=== PATIENT | female | born 1970 | race Two or more races ===

== ENCOUNTER 2017-08-12 10:43 | Emergency (ER) | payer SELFPAY ==
[2017-08-12] MEDS ORDERED: PREDNISOLONE SOD PHOS 15 MG/5 ML ORAL SYRING PO ONE (11:09)
[2017-08-12] MEDS ORDERED: IPRATROPIUM/ALBUTEROL 0.5-2.5 MG/3 ML AMPUL NEB ONE (11:09)
--- NOTE | 2017-08-12 11:11 | ER Document Report ---
ED Medical Screen (RME) - General Chief Complaint: Shortness Of Breath Stated Complaint: SHORTNESS OF BREATH Time Seen by Provider: 08/12/17 11:06 Information source: Patient TRAVEL OUTSIDE OF THE [place] IN LAST 30 DAYS: No - HPI Patient complains to provider of: Shortness of breath and wheezing Onset: Other - 2 weeks Notes: 08/12/17 11:11 Patient states she has a history of asthma many years ago she was hospitalized for it but never placed in the ICU. She states that for the last 2 weeks she has been wheezing with shortness of breath. She has been out of her medication for about a month. She has been using her grandsons nebulizer for the last 3 days without improvement. She states she did fill her albuterol prescription on Wednesday and has been taking that but it is almost gone. Patient denies fevers.She did not get the flu vaccination.On exam she has mild respiratory distress with bilateral inspiratory and expiratory wheezing. DuoNeb/pred ordered. 08/12/17 11:20 - Related Data Allergies/Adverse Reactions: codeine Allergy (Verified 08/12/17 10:53) Penicillins Allergy (Verified 08/12/17 10:53) Past Medical History - Social History Chew tobacco use (# tins/day): No Frequency of alcohol use: Occasional Drug Abuse: None Renal/ Medical History: Denies: Hx Peritoneal Dialysis Physical Exam - Vital signs Vitals: Temp Pulse Resp BP Pulse Ox 98.2 F 102 H 18 131/88 H 97 08/12/17 10:56 08/12/17 10:56 08/12/17 10:56 08/12/17 10:56 08/12/17 10:56 Course - Vital Signs Vital signs: Temp Pulse Resp BP Pulse Ox 98.2 F 102 H 18 131/88 H 97 08/12/17 10:56 08/12/17 10:56 08/12/17 10:56 08/12/17 10:56 08/12/17 10:56
[2017-08-12] MEDS ORDERED: ALBUTEROL SULFATE HFA (90 MCG/PUFF) 8 GM MDI (1 MDI/ER DISP) IH ONE (11:52)
--- NOTE | 2017-08-12 12:00 | ER Document Report ---
ED Respiratory Problem - General Chief Complaint: Shortness Of Breath Stated Complaint: SHORTNESS OF BREATH Time Seen by Provider: 08/12/17 11:06 Notes: 47-year-old female patient. History of asthma. No recent long trips or travel. No prior history of DVT. No asymmetrical swelling of the legs reported. No calf pain. States that she has been on Abreva in the past but cannot afford it anymore. Has been wheezing for several days. Using her child' s inhaler but not getting better. Has any fever, chills, sweats. No other issues at this time. TRAVEL OUTSIDE OF THE [place] IN LAST 30 DAYS: No - HPI Patient complains to provider of: Asthma, Hurts to breath, Short of breath Quality of pain: No pain Context: denies: DVT, Malignancy, , Recent cardiac event, Recent foreign travel, Recent immobilization, Recent surgery, Smoker Cough: Nonproductive - Related Data Allergies/Adverse Reactions: codeine Allergy (Verified 08/12/17 10:53) Penicillins Allergy (Verified 08/12/17 10:53) Past Medical History - General Information source: Patient - Social History Smoking Status: Former Smoker Chew tobacco use (# tins/day): No Frequency of alcohol use: Occasional Drug Abuse: None Lives with: Family Family History: Reviewed & Not Pertinent Patient has suicidal ideation: No Patient has homicidal ideation: No - Past Medical History Cardiac Medical History: Reports: None Pulmonary Medical History: Reports: None EENT Medical History: Reports: None Neurological Medical History: Reports: None Endocrine Medical History: Reports: None Renal/ Medical History: Denies: Hx Peritoneal Dialysis Malignancy Medical History: Reports: None GI Medical History: Reports: None Musculoskeltal Medical History: Reports None Past Surgical History: Reports: Hx Tubal Ligation Review of Systems - Review of Systems Constitutional: denies: Fever, Malaise, Weakness EENT: denies: Blurred vision, Double vision, Nose discharge, Sinus pressure, Throat pain, Difficulty swallowing, Mouth pain Cardiovascular: Dyspnea. denies: Chest pain, Palpitations, Heart racing, Syncope, Dizziness, Lightheaded Respiratory: Cough, Short of breath, Wheezing. denies: Sputum, Stridor Gastrointestinal: denies: Abdominal pain, Diarrhea, Nausea, Vomiting Genitourinary: denies: Burning, Dysuria, Discharge, Frequency, Flank pain Musculoskeletal: denies: Back pain, Gout, Joint pain, Joint swelling, Muscle pain, Muscle stiffness Skin: denies: Dryness, Lesions, Rash Hematologic/Lymphatic: denies: Anemia, Blood clots, Easy bleeding, Easy bruising Physical Exam - Vital signs Vitals: Temp Pulse Resp BP Pulse Ox 98.2 F 102 H 18 131/88 H 97 08/12/17 10:56 08/12/17 10:56 08/12/17 10:56 08/12/17 10:56 08/12/17 10:56 Interpretation: Normal, Tachycardic - General General appearance: Appears well, Alert - HEENT Head: Normocephalic, Atraumatic Eyes: Normal Pupils: PERRL - Respiratory Respiratory status: No respiratory distress, Tachypnea Chest status: Nontender Breath sounds: Decreased air movement, Nonproductive cough, Wheezing Chest palpation: Normal - Cardiovascular Rhythm: Tachycardia Heart sounds: Normal auscultation Murmur: No - Abdominal Inspection: Normal Distension: No distension Bowel sounds: Normal Tenderness: Nontender Organomegaly: No organomegaly - Back Back: Normal, Nontender - Extremities General upper extremity: Normal inspection, Nontender, Normal color, Normal ROM , Normal temperature. No: Edema General lower extremity: Normal inspection, Nontender, Normal color, Normal ROM , Normal temperature, Normal weight bearing. No: Tender, Edema, Compa's sign - Neurological Neuro grossly intact: Yes Cognition: Normal Orientation: AAOx4 [place] Coma Scale Eye Opening: Spontaneous [place] Coma Scale Verbal: Oriented [place] Coma Scale Motor: Obeys Commands [place] Coma Scale Total: 15 Speech: Normal Motor strength normal: LUE, RUE, LLE, RLE Sensory: Normal - Psychological Associated symptoms: Normal affect, Normal mood - Skin Skin Temperature: Warm Skin Moisture: Dry Skin Color: Normal Course - Re-evaluation Re-evalutation: 08/12/17 11:56 This is a well-appearing female in no acute distress. Received breathing treatment and steroids. Feeling better. Do not feel compelled at this time to get a chest x-ray. Patient advised to return for worsening symptoms or concerns. - Vital Signs Vital signs: Temp Pulse Resp BP Pulse Ox 98.2 F 102 H 18 131/88 H 97 08/12/17 10:56 08/12/17 10:56 08/12/17 10:56 08/12/17 10:56 08/12/17 10:56 Discharge - Discharge Clinical Impression: Asthma exacerbation Qualifiers: Asthma severity: mild Asthma persistence: intermittent Qualified Code(s): J45.21 - Mild intermittent asthma with (acute) exacerbation Disposition: HOME, SELF-CARE Instructions: Asthma ([facility]) Additional Instructions: Return immediately if you develop any worsening symptoms, severe shortness of breath, fever or other concerns. As mentioned, look at the [employer] application for [employer]. There is a coupon for a box of 25 albuterol vials for $9.75 at [employer]. Prescriptions: Albuterol Sulfate [Albuterol Sulfate 2.5mg/3 mL] 1 vial IH Q4 PRN 7 Days #25 vial PRN Reason: Prednisone 60 mg PO DAILY 2 Days #12 tablet Forms: Return to Work
[2017-08-12 12:59] VITALS: BP 116/75
== END 2017-08-12 12:57 | disposition home or self-care (01) ==
LOC: ER 10:43
DX: J45.21 Mild intermittent asthma with (acute) exacerbation (principal); R06.02 Shortness of breath; Z87.891 Personal history of nicotine dependence
CPT/HCPCS: 94640; 99284; J7510; J3490; J7620

== ENCOUNTER 2017-09-03 01:56 | Emergency (ER) | payer SELFPAY ==
[2017-09-03] MEDS ORDERED: IPRATROPIUM/ALBUTEROL 0.5-2.5 MG/3 ML AMPUL NEB ONE ×2 (02:28→03:53)
[2017-09-03] MEDS ORDERED: METHYLPREDNISOLONE INJ 125 MG/2 ML SDV IV ONE (02:28)
--- NOTE | 2017-09-03 02:29 | ER Document Report ---
ED Respiratory Problem - General Mode of Arrival: Ambulatory Information source: Patient TRAVEL OUTSIDE OF THE [place] IN LAST 30 DAYS: No <DANIELLA MCNAIR - Last Filed: 09/03/17 02:29> <CHANG KENNEY - Last Filed: 09/03/17 05:38> - General Chief Complaint: Shortness Of Breath Stated Complaint: TROUBLE BREATHING Time Seen by Provider: 09/03/17 02:21 Notes: Patient is a 47 year old female that presents to the emergency department today with complaints of shortness of breath. Patient has a history of asthma. Patient states she does not smoke cigarettes but people in her house do. Patient does mention that she lost her insurance in July and she was on several maintenance inhalers including Symbicort but she cannot afford them now. Patient denies fevers. (DANIELLA MCNAIR) - Related Data Allergies/Adverse Reactions: codeine Allergy (Verified 08/12/17 10:53) Penicillins Allergy (Verified 08/12/17 10:53) Past Medical History - General Information source: Patient - Social History Smoking Status: Never Smoker Cigarette use (# per day): No Frequency of alcohol use: None Drug Abuse: None Lives with: Family Family History: Reviewed & Not Pertinent - Medical History Medical History: Negative Renal/ Medical History: Denies: Hx Peritoneal Dialysis Past Surgical History: Reports: Hx Tubal Ligation <DANIELLA MCNAIR - Last Filed: 09/03/17 02:29> Review of Systems - Review of Systems Constitutional: denies: Fever EENT: No symptoms reported Cardiovascular: No symptoms reported Respiratory: See HPI, Short of breath, Wheezing Gastrointestinal: No symptoms reported Genitourinary: No symptoms reported Female Genitourinary: No symptoms reported Musculoskeletal: No symptoms reported Skin: No symptoms reported Hematologic/Lymphatic: No symptoms reported Neurological/Psychological: No symptoms reported -: Yes All other systems reviewed and negative <DANIELLA MCNAIR - Last Filed: 09/03/17 02:29> Physical Exam <DANIELLA MCNAIR - Last Filed: 09/03/17 02:29> <CHANG KENNEY - Last Filed: 09/03/17 05:38> - Vital signs Vitals: Temp Pulse Resp BP Pulse Ox 97.8 F 111 H 24 H 115/86 H 94 09/03/17 02:00 02/23/18 02:00 09/03/17 02:00 09/03/17 02:00 09/03/17 02:00 - Notes Notes: Physical Exam: General: Alert, appears well. HEENT: Normocephalic. Atraumatic. PERRL. Extraocular movements intact. Oropharynx clear. Neck: Supple. Non-tender. Respiratory: No respiratory distress. Diffuse expiratory wheezing. Cardiovascular: Regular rate and rhythm. Abdominal: Normal Inspection. Non-tender. No distension. Normal Bowel Sounds. Back: Non-tender. No deformity or step off. Extremities: Moves all four extremities. Upper extremities: Normal inspection. Normal ROM. Lower extremities: Normal inspection. No edema. Normal ROM. Neurological: Normal cognition. AAOx4. Normal speech. Psychological: Normal affect. Normal Mood. Skin: Warm. Dry. Normal color. (DANIELLA MCNAIR) Course <DANIELLA MCNAIR - Last Filed: 09/03/17 02:29> - Laboratory Result Diagrams: 09/03/17 03:02 09/03/17 03:02 <CHANG KENNEY - Last Filed: 09/03/17 05:38> - Re-evaluation Re-evalutation: 09/03/17 05:13 Patient with leukocytosis. No pneumonia on x-ray. Afebrile. Ambulates without difficulty in emergency department maintains her oxygen saturation. Wheezing cleared. Patient will be discharged home with prednisone. She also be given a prescription for Symbicort, Singulair, and albuterol. Social work consult has been placed to help the patient obtain medications as she recently lost her insurance in July. Understands and agrees with plan. Stable for discharge. (CHANG KENNEY) - Vital Signs Vital signs: Temp Pulse Resp BP Pulse Ox 97.8 F 111 H 24 H 115/86 H 94 09/03/17 02:00 09/03/17 02:00 09/03/17 02:00 09/03/17 02:00 09/03/17 02:00 - Laboratory Laboratory results interpreted by me: 09/03/17 09/03/17 03:02 03:02 WBC 16.9 H RBC 5.30 H MCV 71 L MCH 23.1 L RDW 17.4 H Eosinophils % 15.4 H Absolute Neutrophils 9.9 H Absolute Eosinophils 2.6 H Chloride 109 H Discharge <DANIELLA MCNAIR - Last Filed: 09/03/17 02:29> <CHANG KENNEY - Last Filed: 09/03/17 05:38> - Discharge Clinical Impression: Respiratory distress Asthma exacerbation Qualifiers: Asthma severity: moderate Asthma persistence: unspecified Qualified Code(s): J45.901 - Unspecified asthma with (acute) exacerbation Condition: Stable Disposition: HOME, SELF-CARE Instructions: Asthma ([facility]) Prescriptions: Montelukast Sodium [Singulair 10 mg Tablet] 10 mg PO QHS #30 tablet Albuterol Sulfate [Proair HFA Inhalation Aerosol 8.5 gm MDI] 2 puff IH Q4H PRN # 1 mdi PRN Reason: Prednisone [Deltasone 20 mg Tablet] 40 mg PO DAILY #6 tablet Forms: Return to Work Referrals: CURT MCKOY MD [ACTIVE STAFF] - Follow up in 1 week Scribe Attestation: 09/03/17 05:38 I personally performed the services described in the documentation, reviewed and edited the documentation which was dictated to the scribe in my presence, and it accurately records my words and actions. (CHANG KENNEY) Scribe Documentation - Scribe Written by Jeferson:: Jeferson Rayo, 09/03/2017 0240 acting as scribe for :: Lianne <DANIELLA MCNAIR - Last Filed: 09/03/17 02:29>
[2017-09-03] MEDS: MAGNESIUM SULFATE/D5W 1 GM/100 ML RTUPB IV SCH ×2 (03:02→03:12)
[2017-09-03 03:13] LABS: ABSOLUTE BASOPHILS # (AUTO) 0.1 10^3/uL (0.0-0.2); ABSOLUTE EOSINOPHILS # (AUTO) 2.6 10^3/uL (0.0-0.6); ABSOLUTE LYMPHOCYTES (AUTO) 3.5 10^3/uL (0.5-4.7); ABSOLUTE MONOCYTES (AUTO) 0.8 10^3/uL (0.1-1.4); ABSOLUTE NEUT (AUTO) 9.9 10^3/uL (1.7-8.2); BASOPHILS % (AUTO) 0.7 % (0-2); EOSINOPHILS % (AUTO) 15.4 % (0-6); HEMATOCRIT 37.7 % (36.0-47.0); HEMOGLOBIN 12.3 g/dL (12.0-15.5); LYMPHOCYTES % (AUTO) 20.8 % (13-45); MEAN CORPUSCULAR HEMOGLOBIN 23.1 pg (27.0-33.4); MEAN CORPUSCULAR HGB CONC 32.5 g/dL (32.0-36.0); MEAN CORPUSCULAR VOLUME 71 fl (80-97); MONOCYTES % (AUTO) 4.7 % (3-13); PLATELET COUNT 324 10^3/uL (150-450); RED CELL DISTRIBUTION WIDTH 17.4 % (11.5-14.0); SEGMENTED NEUTROPHILS % (AUTO) 58.4 % (42-78); TOTAL CELLS COUNTED % (AUTO) 100 %; WHITE BLOOD COUNT 16.9 10^3/uL (4.0-10.5)
[2017-09-03 03:25] LABS: ANION GAP 10 (5-19); BLOOD UREA NITROGEN 9 mg/dL (7-20); CALCIUM 9.1 mg/dL (8.4-10.2); CARBON DIOXIDE 22 mmol/L (22-30); CHLORIDE 109 mmol/L (98-107); GLUCOSE 100 mg/dL (75-110); POTASSIUM 3.9 mmol/L (3.6-5.0); SODIUM 140.7 mmol/L (137-145)
[2017-09-03] MEDS ORDERED: BUDESONIDE/FORMOTEROL 80-4.5 MCG 60 PUFF/6.9 GM MDI IH ONE ×2 (04:26→05:09)
--- NOTE | 2017-09-03 04:42 | RADIOLOGY REPORT (SQ) ---
EXAM DESCRIPTION: CHEST PA/LAT CLINICAL HISTORY: cough COMPARISON: None. FINDINGS: Frontal and lateral views of the chest. The cardiomediastinal silhouette has normal size and contour. No consolidation, pneumothorax, or pleural effusion. No displaced rib fractures identified. Upper abdominal soft tissues are unremarkable. IMPRESSION: 1. No acute pulmonary process identified.
[2017-09-03 06:12] VITALS: BP 121/74
== END 2017-09-03 06:07 | disposition home or self-care (01) ==
LOC: ER 01:56
DX: J45.901 Unspecified asthma with (acute) exacerbation (principal); R06.03 Acute respiratory distress
CPT/HCPCS: 94640 ×2; 99285; 96375; 96365; 36415; 85025; 80048; 71046; J2930; J3475; J7620; J3490